=== PATIENT | male | born 1980 | race Caucasian/White ===

== ENCOUNTER 2017-06-28 11:35 | Emergency (ER) | payer OTHER ==
--- NOTE | 2017-06-28 11:40 | ED Physician Documentation ---
General Adult - HISTORIAN Historian: patient - HPI Stated Complaint: chest pain Chief Complaint: General Adult Onset: hours Timing: still present Severity: moderate Further Comments: yes (Pt is a 37 yo male with chest pain, which is point tenderness in the L mid chest. Pt has not had n/v, sob, diaphoresis. Pt is tachycardica with elevated ot=306/91 on presentation. Pt does not have HTN hx or heart hx or family hx. Pt was just standing in his yard with his kids when pain began. Pt had been working out a few days ago and says he may have strained a muscle. Pt appears anxious. He does not have an anxiety diagnosis.) - ROS CONST: no problems EYES/ENT: none CVS/RESP: chest pain GI/: none MS/SKIN/LYMPH: none NEURO/PSYCH: other (possible anxiety) - PAST HX Past History: none Surgeries/Procedures: none Allergies/Adverse Reactions: Allergies Allergy/AdvReac Type Severity Reaction Status Date / Time No Known Allergies Allergy Verified 06/28/17 11:46 Home Medications: Ambulatory Orders Medication Instructions Recorded NK [NK] 06/28/17 - SOCIAL HX Smoking History: non-smoker Alcohol Use: occasionally - FAMILY HX Family History: No - REVIEWED ASSESSMENTS Nursing Assessment Reviewed: Yes Vitals Reviewed: Yes Progress - Progress Progress: ASA 325 mg po x 1 Pt declined Ativan. He will f/u with pcp re: anxiety, increased glucose level and mildly elevated LFT's. - EKG/XRAY/CT EKG: rhythm (sinus tachycardia, AX=700; normal CA interval; normal axis.) XRAY: chest (neg) General Adult Physical Exam - PHYSICAL EXAM GENERAL APPEARANCE: moderate distress (pt appears anxious) EENT: pharynx normal NECK: normal inspection, supple RESPIRATORY: no resp distress, chest non-tender, breath sounds normal CVS: reg rate & rhythm, heart sounds normal ABDOMEN: soft, no organomegaly, normal bowel sounds BACK: normal inspection SKIN: warm/dry, normal color EXTREMITIES: non-tender, normal range of motion, no evidence of injury, no edema NEURO: oriented X3, motor nml, sensation nml Discharge Clincal Impression: non-cardiac chest pain Referrals: Primary Doctor,No [Primary Care Provider] - Condition: Good Disposition: 01 HOME, SELF-CARE Decision to Admit: NO Decision Time: 12:50
[2017-06-28] MEDS: ASPIRIN 81 MG CHEW TAB PO ONE (11:46)
[2017-06-28 12:18] LABS: eGFR (African) > 60; eGFR (Non-African) > 60
[2017-06-28 12:25] LABS: BASOPHILS % 0.5 (0.0-1.5); EOSINOPHILS % 2.8 % (0.0-6.8); MEAN CORPUSCULAR HEMOGLOBIN 30.4 pg (28.0-34.0); MEAN CORPUSCULAR VOLUME 89.6 fl (80.0-100.0); MONOCYTES % 5.3 % (0.0-11.0); NEUTROPHILS # 4.7 # k/uL (1.4-7.7)
[2017-06-28 12:48] VITALS: BP 154/88
--- NOTE | 2017-06-28 12:59 | Diagnostic Imaging Report ---
WALI SALAS [facility] [id number] [facility].[address] [id number] Report Submission Date: Jun 28, 2017 12:02:40 PM CDT Patient Study Name: JAYDEN MARTELL Date: Jun 28, 2017 11:42:00 AM CDT Modality Type: CR Gender: M Description: CHEST : 82 Institution: [facility] Physician: WALI SALAS Chest -one view CLINICAL HISTORY: Chest pain. FINDINGS: Examination of the chest single portable AP view 06/28/2017 1142 hr with no prior film for comparison demonstrates the lungs to be hypoventilated but clear. Cardiovascular and mediastinal silhouettes are within normal limits. IMPRESSION: Hypoventilation. No active disease. Electronically signed on Jun 28, 2017 12:02:40 PM CDT by: Ravinder MILLIGAN
== END 2017-06-28 12:47 | disposition home or self-care (01) ==
LOC: ED 11:35
DX: R07.89 Other chest pain (principal)
CPT/HCPCS: 71010; 80053; 82550; 82553; 84484; 85025; 85379; 85610; 99283; S1016